=== PATIENT | male | born 1990 | race Hispanic/Latino ===

== ENCOUNTER 2019-11-17 19:51 | Emergency (ER) | payer BC ==
[~2019-11-17] VITALS: Ht 167.6 cm; Wt 80.7 kg
[2019-11-17] MEDS ORDERED: VITAMIN D32000 UNI2 (20:04)
--- NOTE | 2019-11-18 12:27 | EKG ---
[facility] [address] [facility] [place], [place] [address] Signed Normal sinus rhythm Normal ECG No previous ECGs available Confirmed by CAMILA PIMENTEL MD ([id number]) on 11/18/2019 12:26:44 PM Electronically Signed By: CAMILA PIMENTEL MD 11/18/19 1227 PATIENT NAME: ADOLFO GOOD Electrocardiogram DATE OF : [birth year] PHYSICIAN: CAMILA PIMENTEL MD REPORT #: [id number] REPORT IS CONFIDENTIAL AND NOT TO BE RELEASED WITHOUT AUTHORIZATION
== END 2019-11-17 21:47 | disposition home or self-care (01) ==
LOC: ED 19:51
DX: R42 Dizziness and giddiness (principal); E78.5 Hyperlipidemia, unspecified; Z87.891 Personal history of nicotine dependence; Z79.899 Other long term (current) drug therapy
CPT/HCPCS: 80053; 85025; 93005; 93010; 99284-25

== ENCOUNTER 2020-10-03 15:21 | Emergency (ER) | payer BC ==
[~2020-10-03] VITALS: Ht 167.6 cm; Wt 79.4 kg
[~2020-10-03 15:21] MED LIST: VITAMIN D32000 UNI2
--- NOTE | 2020-10-04 15:19 | EKG ---
[facility] [address] [facility] [place], [place] [address] Signed Normal sinus rhythm Normal ECG When compared with ECG of 17-NOV-2019 20:33, No significant change was found Confirmed by LEONARD CANALES DO ([id number]) on 10/04/2020 3:19:36 PM Electronically Signed By: LEONARD CANALES DO 10/04/20 1519 PATIENT NAME: ADOLFO GOOD Electrocardiogram DATE OF : [birth year] PHYSICIAN: LEONARD CANALES DO REPORT #: [id number] REPORT IS CONFIDENTIAL AND NOT TO BE RELEASED WITHOUT AUTHORIZATION
== END 2020-10-03 17:24 | disposition home or self-care (01) ==
LOC: ED 15:21
DX: R06.02 Shortness of breath (principal); E78.5 Hyperlipidemia, unspecified; Z79.899 Other long term (current) drug therapy
CPT/HCPCS: 71045; 93005; 93010; 99285-25

== ENCOUNTER 2024-11-27 17:29 | Observation (INO) | payer BC ==
[~2024-11-27] VITALS: Ht 167.6 cm; Wt 82.0 kg
[~2024-11-27 17:29] MED LIST changes: +SEVOFLURANE 250 ML BTL INH ONE
--- OUTSIDE RECORDS SUMMARY | 2024-11-27 17:37 | XMS ---
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 Saeed has no Care Guidelines for this patient. Shayne VISIT COUNT (12 MO.) [address] TOTAL 2 NOTE: Visits indicate total known visits. ED/C VISIT TRACKING (12 MO.) 11/27/2024 17:30 [facility] [place] TYPE: Emergency COMPLAINT: - ABDOMINAL PAIN 11/27/2024 04:29 [facility] [place] TYPE: Emergency DIAGNOSES: - Calculus of gallbladder without cholecystitis without obstruction - Epigastric pain - Abdominal Pain, Back Pain INPATIENT VISIT TRACKING (12 MO.) No inpatient visits to display in this time frame [email or web address]
[2024-11-27] MEDS ORDERED: ondansetron HCL 4 MG/2 ML VIAL IV ONE (18:00)
[2024-11-27 18:08] LABS: BASOPHILS 0.3 % (0-2); HEMATOCRIT 40.9 % (35.0-50.0); LYMPHOCYTES 9.3 % (24-44); MCH 30.4 (27-36); MCHC 34.1 g/dl (30-36); MCV 89.1 fl (81-99); MONOCYTES 7.7 % (0-12); NEUTROPHILS 82.7 % (39-80); PLATELET COUNT 256 K/uL (140-440); RBC 4.59 M/ul (4.3-5.7); RDW 13.7 (10.5-15.0)
[2024-11-27] MEDS ORDERED: KETOROLAC TROMETHAMINE 30 MG/ML VIAL IV ONE (18:15)
[2024-11-27 18:26] LABS: ALBUMIN 4.1 g/dL (3.4-5.0); ALBUMIN/GLOBULIN RATIO 1.28 (1.1-2.4); ANION GAP 12.1 (7-21); BILIRUBIN, TOTAL 2.1 mg/dL (0.2-1.0); BUN/CREATININE RATIO 13.75 (6.0-28.6); CALCIUM 8.8 mg/dL (8.5-10.1); CREATININE, SERUM 0.8 mg/dL (0.70-1.30); POTASSIUM 4.1 mmol/L (3.5-5.1); PROTEIN, TOTAL 7.3 g/dL (6.4-8.2)
[2024-11-27] MEDS ORDERED: levoFLOXacin 750 MG PIGGYBACK IV ONE (20:00)
[2024-11-27] MEDS ORDERED: metroNIDAZOLE/SODIUM CHLORIDE 500 MG/100 ML PIGGYBACK IV ONE (20:00)
[2024-11-27 20:10] LABS: BILIRUBIN, URINE POSITIVE (negative); BLOOD/HGB, URINE NEGATIVE (Negative); KETONE, URINE NEGATIVE (Negative); LEUK ESTERASE, URINE NEGATIVE (negative); NITRITE, URINE NEGATIVE (negative); PH, URINE 6.5 (5-7)
[2024-11-27 21:05] VITALS: BP 114/69
[2024-11-27] MEDS ORDERED: DEXTROSE 5% - LACTATED RINGERS 1,000 ML IV SCH (21:15)
[2024-11-27] MEDS ORDERED: ondansetron HCL 4 MG/2 ML VIAL IV PRN (21:15)
[2024-11-27] MEDS ORDERED: HYDROmorphone HCL 1 MG/ML SYR IV PRN (21:15)
[2024-11-28] VITALS (7 sets, daily range): BP systolic 105–129; BP diastolic 61–77
[2024-11-28] MEDS ORDERED: ENOXAPARIN SODIUM 40 MG/0.4 ML SYR SUB-Q SCH (10:23)
[2024-11-28] MEDS ORDERED: PANTOPRAZOLE SODIUM 40 MG/10 ML VIAL IV SCH (10:23)
[2024-11-28] MEDS ORDERED: ondansetron HCL 4 MG/2 ML VIAL IV PRN ×2 (10:30→11:30)
[2024-11-28] MEDS ORDERED: PROCHLORPERAZINE EDISYLATE 10 MG/2 ML VIAL IV PRN ×2 (10:30→11:30)
[2024-11-28] MEDS ORDERED: DEXTROSE 5% - LACTATED RINGERS 1,000 ML IV SCH (10:30)
[2024-11-28] MEDS ORDERED: HYDROmorphone HCL 1 MG/ML SYR IV PRN (10:30)
[2024-11-28] MEDS ORDERED: OXYCODONE HCL 5 MG TAB PO PRN (10:30)
[2024-11-28] MEDS ORDERED: ACETAMINOPHEN 325 MG TAB PO PRN (10:30)
[2024-11-28] MEDS ORDERED: iopamidoL 30 ML VIAL ONE (10:45)
[2024-11-28] MEDS ORDERED: BUPIVACAINE HCL 0.25% 50 ML MDV ONE (10:45)
[2024-11-28] MEDS ORDERED: SODIUM CHLORIDE 0.9% 40 ML IV ONE (10:46)
[2024-11-28] MEDS ORDERED: LIDOCAINE 1% W/ EPI 1:200,000 30 ML SDV ONE (10:46)
[2024-11-28] MEDS ORDERED: KETOROLAC TROMETHAMINE 30 MG/ML VIAL ONE (10:52)
[2024-11-28] MEDS ORDERED: SUGAMMADEX SODIUM 200 MG/2 ML ML ONE (10:52)
[2024-11-28] MEDS ORDERED: SUCCINYLCHOLINE IN 0.9% NACL 200 MG/10 ML SYRINGE ONE (10:52)
[2024-11-28] MEDS ORDERED: propofoL 200 MG/20 ML VIAL ONE (10:52)
[2024-11-28] MEDS ORDERED: fentaNYL citrate 100 MCG/2 ML VIAL ONE (10:52)
[2024-11-28] MEDS ORDERED: MIDAZOLAM HCL 2 MG/2 ML VIAL ONE (10:52)
[2024-11-28] MEDS ORDERED: LACTATED RINGER'S 1,000 ML IV ONE (10:52)
[2024-11-28] MEDS ORDERED: METOCLOPRAMIDE HCL 10 MG/2 ML SDV ONE (10:52)
[2024-11-28] MEDS ORDERED: FAMOTIDINE 20 MG/ 2 ML VIAL ONE (10:52)
[2024-11-28] MEDS ORDERED: ROCURONIUM BROMIDE 50 MG/5 ML SYR ONE (10:52)
[2024-11-28] MEDS ORDERED: LIDOCAINE HCL 4% 5 ML AMP ONE (10:52)
[2024-11-28] MEDS ORDERED: DEXAMETHASONE SOD PHOS 4 MG/ML VIAL ONE (10:52)
[2024-11-28] MEDS ORDERED: ondansetron HCL 4 MG/2 ML VIAL ONE (10:52)
[2024-11-28] MEDS ORDERED: fentaNYL citrate 50 MCG/ML SDV IV PRN (11:30)
[2024-11-28] MEDS ORDERED: droPERidol 5 MG/2 ML VIAL IV PRN (11:30)
[2024-11-28] MEDS ORDERED: NALOXONE HCL 0.4 MG SYR IV PRN (11:30)
[2024-11-28] MEDS ORDERED: METOCLOPRAMIDE HCL 10 MG/2 ML SDV IV PRN (11:30)
[2024-11-28] MEDS ORDERED: IBLOOD GLUCOSE TEST STRIP 1 EA TEST VI PRN (11:30)
[2024-11-28] MEDS ORDERED: MORPHINE SULFATE 10 MG/ML VIAL IV PRN (11:30)
[2024-11-28] MEDS ORDERED: SEVOFLURANE 250 ML BTL ONE (12:22)
--- NOTE | 2024-11-28 13:15 | CONS ---
[facility] [address] [place], [place] [address] Signed DATE OF CONSULTATION: 11/28/2024 CHIEF COMPLAINT: Right upper quadrant abdominal pain. HISTORY OF PRESENT ILLNESS: ADOLFO is a 34-year-old gentleman, who for about nine months was having intermittent right upper quadrant abdominal pain associated with nausea and vomiting. He was in quite a bit of pain yesterday and had gone over to the [facility] Emergency Room. The laboratory work was unremarkable. The CT scan was negative. He said an ultrasound was done, which showed inflammation, but no stones. They allowed him to go home. He was supposed to get some medications, but did not. His pain recurred, so he came over to our emergency room here at [facility]. White count was 10 and his liver function tests were elevated with some bilirubin in the urine. A repeat ultrasound was done here since we did not have the report from [facility] at that time. The liver is unremarkable. Apparently, he has stones and sludge in his gallbladder. The gallbladder wall is thickened and there is pericholecystic fluid. The common bile duct is unremarkable at 4.5 mm. I have been asked to admit him as a general surgeon on-call. He did receive some Levaquin and Flagyl last night. He said he has done fine and does not seem to have a lot of pain currently. PAST MEDICAL HISTORY: 1. Gastroesophageal reflux disease. 2. Hyperlipidemia. 3. Vitamin D deficiency. PAST SURGICAL HISTORY: He has had teeth pulled and PE tubes as a child. SOCIAL HISTORY: He does not smoke. He has a drink once in a while. He is to Lorena at [phone]. They have four children. 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 He has no primary care provider. He uses the [facility]. FAMILY HISTORY: His mom had diabetes and breast cancer. REVIEW OF SYSTEMS: He said he took some interest in his health a few years ago and changed his diet and lost 15 pounds and feels much better. Electronically Signed By: IAN VENCES MD 11/28/24 1315 PATIENT NAME: ADOLFO GOOD CONSULTATION DATE OF : [birth year] REPORT #: [id number] PHYSICIAN: IAN VENCES MD PCP: NO PRIMARY CARE PHYSICIAN REPORT IS CONFIDENTIAL AND NOT TO BE RELEASED WITHOUT AUTHORIZATION [facility] [address] [place], [place] [address] Signed ALLERGIES: None. MEDICATIONS: Vitamin D. PHYSICAL EXAMINATION: VITAL SIGNS: His blood pressure is 105/63, heart rate 71, respiratory rate 16, temperature is 97.8. He is 99% on room air. He is 5 feet 6 inches tall at 82 kg with a body mass index of 29. GENERAL: ADOLFO is a 34-year-old gentleman lying supine in his hospital bed. He is in no acute distress. He is not jaundiced. He is watching TV. LUNGS: Clear to auscultation bilaterally. HEART: Regular rate and rhythm without murmurs. ABDOMEN: The abdomen is soft and flat. He says he has some minimal tenderness to deep palpation in the right upper quadrant. I cannot feel a mass. LABORATORY DATA: His white blood cell count is 10.0, hemoglobin 14, neutrophils 82, creatinine 0.8. Urinalysis showed some bilirubin. Total bilirubin is 2.1, AST 200, ALT 212, alkaline phosphatase 98, albumin 4.3, lipase 39. RADIOGRAPHIC STUDIES: Ultrasound here at [facility] showed negative liver but some stones and sludge in the gallbladder. The gallbladder wall is thickened and there is pericholecystic fluid. The common bile duct is normal at 4.5 mm. ASSESSMENT AND PLAN: ADOLFO is a 34-year-old gentleman who presents with acute cholecystitis and cholelithiasis. He has been admitted and given some IV fluids and antibiotics. I brought with me a brochure and reviewed that with him. He understands the location and function of the gallbladder. We have discussed laparoscopic versus open cholecystectomy. There is risk including, but not limited to gas bloating, crampy abdominal pain, bleeding, perforation requiring surgery, and missed diagnosis. We also reviewed the fact he would probably be off work about a week, but when he goes back, he should not lift over about 20 pounds for about a month or so. He has expressed understanding and would like to proceed with his gallbladder surgery today. I will be talking to the OR charge nurse shortly. He has expressed understand and would like to proceed as above. Ian Vences MD Electronically Signed By: IAN VENCES MD 11/28/24 1315 PATIENT NAME: ADOLFO GOOD CONSULTATION DATE OF : [birth year] REPORT #: [id number] PHYSICIAN: IAN VENCES MD PCP: NO PRIMARY CARE PHYSICIAN REPORT IS CONFIDENTIAL AND NOT TO BE RELEASED WITHOUT AUTHORIZATION [facility] [address] [facility], [place] [address] Signed ALB/MODL /[id number] cc: Ian Vences MD Copies: IAN VENCES MD ~ Electronically Signed By: IAN VENCES MD 11/28/24 1315 PATIENT NAME: ADOLFO GOOD CONSULTATION DATE OF : [birth year] REPORT #: [id number] PHYSICIAN: IAN VENCES MD PCP: NO PRIMARY CARE PHYSICIAN REPORT IS CONFIDENTIAL AND NOT TO BE RELEASED WITHOUT AUTHORIZATION
[2024-11-28] MEDS ORDERED: OXYCODONE HCL10 MG PO (15:48)
[2024-11-28] MEDS ORDERED: TYLENOL EXTRA500 MG PO (15:54)
--- NOTE | 2024-11-29 08:00 | OR ---
[facility] [address] [place], [place] [address] Signed DATE OF OPERATION: 11/28/2024 SURGEON: Ian Vences MD PREOPERATIVE DIAGNOSES: Acute cholecystitis with cholelithiasis. POSTOPERATIVE DIAGNOSES: Acute cholecystitis with cholelithiasis. PROCEDURE: Laparoscopic cholecystectomy with intraoperative cholangiogram. ESTIMATED BLOOD LOSS: None. FINDINGS: ADOLFO indeed had a distended, edematous gallbladder. He had multiple small 4 mm yellow cholesterol stones. The intraoperative cholangiogram was unremarkable. INDICATIONS: ADOLFO is a 34-year-old gentleman, who was having right upper quadrant abdominal pain with nausea and vomiting for about nine months. It was so bad, he went to [facility] ER. He said the CT scan was unremarkable. It was change of shift about 8 in the morning. Second ER doctor came in. It sounds like the ultrasound showed inflammation, but no stones. I am not sure we actually have that ultrasound report. When the Toradol wore off, he was still having pain. He had called his cousin who advised him to come over to our emergency room here at [facility]. The white count was borderline at 10 and his liver function tests have gone from normal to all elevated. Lipase was normal. Repeat ultrasound showed negative liver. He indeed has cholelithiasis with sludge. The wall was thickened and he had pericholecystic fluid. Common bile duct was unremarkable at 4.5 mm. I met with ADOLFO earlier this morning. I gave him our brochure on the gallbladder. We looked at it page by page. We reviewed the location and function of the gallbladder and we discussed laparoscopic versus open cholecystectomy. He understands the expected intraop and postop course. There is risk including, but not limited to gas bloating, crampy abdominal pain, bleeding, perforation requiring surgery, and missed diagnosis. He had expressed understanding and wished to proceed with the surgery. DESCRIPTION OF PROCEDURE: Electronically Signed By: IAN VENCES MD 11/29/24 0800 PATIENT NAME: ADOLFO GOOD OPERATIVE REPORT DATE OF : [birth year] REPORT #: [id number] PHYSICIAN: IAN VENCES MD PCP: NO PRIMARY CARE PHYSICIAN REPORT IS CONFIDENTIAL AND NOT TO BE RELEASED WITHOUT AUTHORIZATION [facility] [address] [place] [id number] Signed ADOLFO was taken into the operating room and placed in the supine position under general endotracheal tube anesthesia. He was already on preoperative antibiotics along with subcutaneous heparin. SCDs were utilized. He was prepped and draped in the usual sterile fashion. All trocars were placed in their usual positions under direct visualization of the camera without difficulty. We had taken pictures throughout for photodocumentation. His gallbladder was quite distended and edematous. We had to suction out the bile in order to grasp the gallbladder and elevate it into the right upper quadrant. Thankfully, we had good access to his triangle of Calot. It was also inflamed and edematous. Thankfully, it was not indurated. It took a few minutes to free up the cystic duct and we passed our intraoperative cholangiocatheter. Intraoperative cholangiocatheter was unremarkable. There were no filling defects and the contrast flowed nicely into the duodenum. We secured the cystic duct stump with a PDS Endoloop along with two clips to nereyda its location. We also placed a couple of clips across the cystic artery as we worked our way up the gallbladder fossa. The entire gallbladder was thus removed from the liver and placed into an EndoCatch bag. We used our laparoscopic suturing device to pass 0-Vicryl suture on either side of the fascia of the subxiphoid trocar site. This was tied down to close this fascia primarily. The gas was then allowed to escape and all the trocars were removed. The gallbladder was passed off to our circulating nurse for photodocumentation. He had multiple small 4 mm yellow cholesterol stones. He also has some cholesterolosis. The gallbladder was indeed thickened. We closed the fascia of the supraumbilical trocar site with interrupted [id number] and simple 0-Vicryl sutures. Local anesthetic was copiously injected into all trocar sites. Each trocar site was irrigated and suctioned out until clear. The skin and dermis of each trocar site was closed with interrupted 3-0 subcuticular and Monocryl sutures. We used half-inch Steri-Strips and Mastisol on our right subcostal incisions. Dry gauze and tape was applied after this. ADOLFO was then awakened from his anesthesia, extubated in the OR, and taken to recovery room in stable condition. Ian Vences MD ALB/MODL /[id number] cc: Ian Vences MD Electronically Signed By: IAN VENCES MD 11/29/24 0800 PATIENT NAME: ADOLFO GOOD OPERATIVE REPORT DATE OF : [birth year] REPORT #: [id number] PHYSICIAN: IAN VENCES MD PCP: NO PRIMARY CARE PHYSICIAN REPORT IS CONFIDENTIAL AND NOT TO BE RELEASED WITHOUT AUTHORIZATION [facility] [address] [place], [place] [address], [place] [address] Signed Copies: IAN VENCES MD ~ Electronically Signed By: IAN VENCES MD 11/29/24 0800 PATIENT NAME: JR ADOLFO LIU OPERATIVE REPORT DATE OF : [birth year] REPORT #: [id number] PHYSICIAN: IAN VENCES MD PCP: NO PRIMARY CARE PHYSICIAN REPORT IS CONFIDENTIAL AND NOT TO BE RELEASED WITHOUT AUTHORIZATION
[2024-11-29] MEDS ORDERED: levoFLOXacin 500 MG PIGGYBACK IV SCH (09:00)
[2024-11-29] MEDS ORDERED: metroNIDAZOLE/SODIUM CHLORIDE 500 MG/100 ML PIGGYBACK IV SCH (09:00)
--- NOTE | 2024-11-30 17:37 | PATH ---
[facility] [address] [place], [place] [address] Signed SPECIMEN(S): A GALLBLADDER SPECIMEN SOURCE: A. GALLBLADDER CLINICAL HISTORY: Cholelithiasis, cholecystitis FINAL PATHOLOGIC DIAGNOSIS: Gallbladder, cholecystectomy: - Acute and chronic cholecystitis with cholelithiasis. - Cholesterolosis. - No malignancy identified. [facility] MICROSCOPIC EXAMINATION: Histologic sections of all submitted blocks are examined by light microscopy. These findings, together with the gross examination, support the pathologic diagnosis. GROSS DESCRIPTION: The specimen, labeled and designated "Amie Jacobs, gallbladder," is received in formalin and consists of Specimen: Previously opened/disrupted gallbladder. Dimensions: 7.0 x 3.0 x 2.3 cm. Serosa: Violaceous and smooth. Cystic Duct: Obstructed by calculi, margin inked black and shaved. Calculi: Multiple yellow-marcelo bosselated calculi (0.2-0.4 cm in greatest dimension, and 3.3 x 1.5 x 0.8 cm in aggregate). Mucosa: Red-brown and velvety with yellow flecking. Wall thickness: 0.3-0.5 cm. Lymph node: No pericystic lymph nodes are grossly identified. Additional: None. [employer] sections are submitted in (A1). VB (under the direct supervision of a pathologist) The Gross Description was prepared using a voice recognition system. The report was reviewed for accuracy; however, sound-alike word errors, addition and/or deletions may occur. If there is any question about this report, please contact Client Services. ADDITIONAL NOTES: PATIENT NAME: ADOLFO GOOD PATHOLOGY DATE OF : [birth year] REPORT #: [id number] PHYSICIAN: KAILEE GONZALES PCP: NO PRIMARY CARE PHYSICIAN REPORT IS CONFIDENTIAL AND NOT TO BE RELEASED WITHOUT AUTHORIZATION [facility] [address] [place] [id number] Signed Immunohistochemical and/or in situ hybridization studies if performed in this case included appropriate positive controls that reacted as expected. This test was developed and its performance characteristics determined by [facility]. It has not been cleared or approved by the U.S. Food and Drug Administration. The FDA has determined that such clearance or approval is not necessary. This test is used for clinical purposes. It should not be regarded as investigational or for research. [facility] is certified under the Clinical Laboratory Improvement Amendments of 1988 (CLIA) as qualified to perform high complexity clinical laboratory testing. PERFORMING LABORATORY: Technical component was performed by [facility], [address] [place] [id number] (CLIA# [id number]). Professional interpretation was performed by [facility], [address] [place] [id number] (CLIA#: [id number]). Diagnostician: Richard Austin MD Pathologist Electronically Signed 11/30/2024 Copies: ~ PATIENT NAME: ADOLFO GOOD PATHOLOGY DATE OF : [birth year] REPORT #: [id number] PHYSICIAN: KAILEE GONZALES PCP: NO PRIMARY CARE PHYSICIAN REPORT IS CONFIDENTIAL AND NOT TO BE RELEASED WITHOUT AUTHORIZATION
== END 2024-11-28 17:38 | disposition home or self-care (01) ==
LOC: ED 17:29 → MS 17:31
PROVIDERS: Emergency Medicine; ADMIT Colon & Rectal Surgery; ATTEND Colon & Rectal Surgery
PROC: 0FT44ZZ Resection of Gallbladder, Percutaneous Endoscopic Approach (ICD-10-PCS; principal; 2024-11-28 11:30)
DX: K80.12 Calculus of gallbladder with acute and chronic cholecystitis without obstruction (principal); K21.9 Gastro-esophageal reflux disease without esophagitis; E78.5 Hyperlipidemia, unspecified; E55.9 Vitamin D deficiency, unspecified; Z79.899 Other long term (current) drug therapy
CPT/HCPCS: 00790; 36415; 74300; 76705; 80053; 81003; 83690; 85025; 96365; 96372; 96374; 96375; 99285-25; A9270; G0378; J0330; J1100; J1650; J1885; J1956; J2250; J2405; J2470; J2704; J2765; J3010; J3490; J7121; Q9967